=== PATIENT | female | born 1965 | race Two or more races ===

== ENCOUNTER → 2018-11-15 | Outpatient (CLI) | payer BC ==
--- NOTE | 2018-11-15 13:15 | RAD ---
Three-view left foot dated 11/15/2018. No comparison available. Clinical data indication: Foot pain. Possible gout. FINDINGS:. 3 views left foot show normal bony alignment. No displaced fracture. No periostitis or bone destruction. Small plantar spur. No erosive changes are seen. IMPRESSION: No acute radiographic abnormality. Electronically signed by: Catrachito Yu MD (11/15/2018 1:11 PM) [id number]
== END | disposition home or self-care (01) ==
LOC: RAD 11:45
PROVIDERS: ATTEND General Practice
DX: M77.32 Calcaneal spur, left foot (principal)
CPT/HCPCS: 73630

== ENCOUNTER → 2021-04-19 | Day surgery (SDC) | payer BC ==
[~2021-04-19] MED LIST: ATOR10TA60 PO; IPRATRPIUM/ALBUTEROL 0.5/2.5MG 3 ML NEBU. NEB PRN; IV RINGERS SOLUTION,LACTATED 1,000 ML IV SCH; LIDOCAINE 2% PF 5 ML VIAL. ONE; METF10007 PO; MIDAZOLAM HCL PF 2 MG/2 ML VIAL. IV ONE; ONDANSETRON PF 4 MG/2 ML VIAL. IV PRN; PROPOFOL 10,000 MCG/ML (20ML) VIAL IV ONE
[2021-04-19 13:25] VITALS: BP 142/77
== END | disposition home or self-care (01) ==
LOC: SURG 10:41
PROVIDERS: ATTEND Internal Medicine Gastroenterology
DX: Z12.11 Encounter for screening for malignant neoplasm of colon (principal); E78.00 Pure hypercholesterolemia, unspecified; E11.9 Type 2 diabetes mellitus without complications; Z79.899 Other long term (current) drug therapy
CPT/HCPCS: 45378; J2001; J2704; J7120